=== PATIENT | female | born 1950 | race American Indian/Alaskan Native ===

== ENCOUNTER 2018-02-27 10:51 | Outpatient (CLI) | payer MEDICARE ==
[2018-02-27 11:24] LABS: Blood Urea Nitrogen 17 mg/dL (7-17)
--- NOTE | 2018-02-27 13:35 | Cat Scan Report ---
CT ABDOMEN WITH AND WITHOUT CONTRAST: HISTORY: abdominal pain. COMPARISON: none. TECHNIQUE: Helical CT in 1.25mm intervals before and after IV contrast and oral contrast. Sagittal and coronal reconstructions. FINDINGS: Lung bases: Normal. Liver: The liver is normal size and contour. Mild diffuse fatty infiltration of the liver parenchyma is noted. No focal liver mass or surface nodularity. Biliary system: Normal. Pancreas: Normal. Spleen: Normal. Kidneys/ureters/bladder: Normal. There is trace fluid in the left anterior pararenal space of uncertain etiology. This is probably an incidental finding Adrenal glands: Normal. Aorta: Normal. Intestines: There are a few diverticula identified in the ascending colon. No evidence for obstruction, acute inflammation or mass. Appendix: Normal. Ascites: None. Adenopathy: None. Musculoskeletal: Normal. IMPRESSION: No acute process is identified in the abdomen. Mild diverticulosis of the proximal colon. Mild fatty infiltration of the liver parenchyma.
== END 2018-02-27 10:52 | disposition home or self-care (01) ==
LOC: CT 10:51
PROVIDERS: ATTEND Internal Medicine
DX: K57.30 Diverticulosis of large intestine without perforation or abscess without bleeding (principal); K76.0 Fatty (change of) liver, not elsewhere classified
CPT/HCPCS: 36415; 74170; 82565; 84520; Q9967

== ENCOUNTER 2018-12-28 05:43 | Day surgery (SDC) | payer MEDICARE ==
[2018-12-28] MEDS ORDERED: ECOTRIN PO ONE (06:11)
[2018-12-28 06:49] LABS: Basophils % (Auto) 0.6 % (0.0-1.8); Eosinophils # (Auto) 0.2 K/mm3 (0.0-0.4); Eosinophils % (Auto) 3.8 % (0.0-4.3); Hematocrit 34.5 % (30.3-42.9); Hemoglobin 11.4 gm/dl (10.1-14.3); Lymphocytes # (Auto) 2.3 K/mm3 (1.2-5.4); Lymphocytes % (Auto) 36.5 % (13.4-35.0); Mean Corpuscular HGB Conc 33 % (30-34); Mean Corpuscular Volume 87 fl (79-97); Monocytes # (Auto) 0.6 K/mm3 (0.0-0.8); Monocytes % (Auto) 9.9 % (0.0-7.3); Platelet Count 262 K/mm3 (140-440); Red Blood Count 3.99 M/mm3 (3.65-5.03)
[2018-12-28 06:58] LABS: INR 0.98 (0.87-1.13)
[2018-12-28] MEDS ORDERED: NACL 0.9% 500 ML 500 ML IV SCH (07:00)
[2018-12-28 07:02] LABS: BUN/Creatinine Ratio 29; Blood Urea Nitrogen 20 mg/dL (7-17); Calcium 8.4 mg/dL (8.4-10.2); Hemolysis Index 3
[2018-12-28] MEDS ORDERED: HEPARIN/NS 5000 UNIT/500ML(CATH LAB) 1,000 ML IR ONE (09:00)
[2018-12-28] MEDS ORDERED: HEPARIN 10,000 UNITS/10 ML ONE (09:00)
[2018-12-28] MEDS ORDERED: CALAN ONE (09:01)
[2018-12-28] MEDS ORDERED: NITROGLYCERIN SYRINGE 3 ML ONE (09:01)
[2018-12-28] MEDS ORDERED: VERSED ONE (09:01)
[2018-12-28] MEDS: SUBLIMAZE ONE ×2 (09:46→09:58)
[2018-12-28] MEDS: XYLOCAINE 2% INFILTRATI ONE ×2 (09:48→09:57)
[2018-12-28] MEDS ORDERED: XYLOCAINE 2% INFILTRATI ONE (10:02)
[2018-12-28] MEDS ORDERED: NACL 0.9% 1000 ML 1,000 ML IV SCH (11:00)
--- NOTE | 2018-12-28 11:01 | Event Note ---
Date: 12/28/18 Patient underwent outpatient cardiac catheterization via the right femoral artery, no complications. Findings: Severe three-vessel coronary artery disease including a 75-80% stenosis of the mid LAD. Left ventricular systolic ejection fraction 40-45%. Recommendations: Coronary artery bypass surgery, patient will be transferred to tertiary center to undergo bypass.
--- NOTE | 2018-12-28 11:04 | Discharge Summary ---
Short Stay Discharge Plan Activity: advance as tolerated Weight Bearing Status: Partial Weight Bearing Diet: low fat, low cholesterol, low salt, diabetic Wound: keep clean and dry Special Instructions: no heavy lifting (3 days) Follow up with: MANISH MCKENNA MD [Primary Care Provider] - 7 Days AYAAN HOGAN MD [Staff Physician] - 7 Days
--- NOTE | 2018-12-28 11:41 | Cardiac Catherization Report ---
CARDIAC CATHETERIZATION REASON FOR PROCEDURE: The patient is a 68-year-old woman who presented as an outpatient with exertional dyspnea and fatigue, a Lexiscan thallium stress test was abnormal, prompting a recommendation for cardiac catheterization. On examination, there was a 2/6 systolic ejection murmur, but echocardiogram found significant sclerosis of the aortic valve, but no significant aortic stenosis. Left ventricular ejection fraction was 45% on echocardiogram. PROCEDURE: 1. Left heart catheterization. 2. Selective left and right coronary angiography. 3. Left ventricular angiography. 4. Sedation time start 09:46, end 10:18. DESCRIPTION OF PROCEDURE: The patient was prepped and draped in a sterile fashion after informed consent. Initial attempt at catheterization via the right radial approach was unsuccessful and abandoned due to severe tortuosity of the brachiocephalic trunk. We then turned our attention to the right femoral artery. The right groin was anesthetized following which we performed cannulation of the right femoral artery. Using the Seldinger technique, a 6-Irish sheath was inserted. Selective left and right coronary angiography was performed using #4 right and left Jose catheters. A pigtail catheter was used for left ventricle angiography. The catheters were then removed, sheath removed, and hemostasis achieved in the right femoral artery using an Angio-Seal device. Subsequently, a TR band was used for hemostasis of the right radial artery site. The procedure was well tolerated by the patient and there were no complications. FINDINGS: HEMODYNAMICS: Left ventricle end diastolic pressure was 35, following coronary angiography. Ascending aortic pressure was 168/74. There was no significant pressure gradient on pullback across the aortic valve. CORONARY ANGIOGRAPHY: There was moderate diffuse coronary calcification, chiefly involving the left coronary vessels. The left main coronary artery contained mild irregularities. The left anterior descending artery contained diffuse mild atherosclerosis of its proximal segment. The mid segment was notable for two sequential, 75-80% stenosis. The diagonal branches also contained [id number] diffuse atherosclerosis. The obtuse marginal branch of the circumflex artery contained a 90% stenosis of its mid segment. The right coronary artery was a large dominant vessel. There was an ostial, 85-90% stenosis of this vessel. This was followed by another long, irregular 80% stenosis of the mid segment. There was mild left ventricular systolic dysfunction, ejection fraction 40-45%. CONCLUSION: 1. Severe 3-vessel coronary artery disease including a 75-80% stenosis of the mid LAD. 2. Mild left ventricular systolic dysfunction, ejection fraction 40-45%. RECOMMENDATION: Coronary artery bypass surgery. JOB# [id number] YAYA/NTS
[2018-12-28] MEDS ORDERED: LASIX IV ONE (11:55)
[2018-12-28 14:27] VITALS: BP 156/69
== END 2018-12-28 14:30 | disposition other institution (70) ==
LOC: CATHLABREC 05:43
PROVIDERS: ATTEND Internal Medicine Cardiovascular Disease
DX: I25.10 Atherosclerotic heart disease of native coronary artery without angina pectoris (principal); E78.00 Pure hypercholesterolemia, unspecified; I10 Essential (primary) hypertension; Z79.82 Long term (current) use of aspirin; Z79.899 Other long term (current) drug therapy; Z98.890 Other specified postprocedural states; Z98.42 Cataract extraction status, left eye; Z98.41 Cataract extraction status, right eye
CPT/HCPCS: 36415; 80048; 85025; 85610; 93005; 93010; 93458; 96374; 99156; 99157; C1760; C1769; C1894; J1644; J1940; J2250; J3010; J7030; J7040; Q9967

== ENCOUNTER 2019-01-13 17:20 | Inpatient (IN) | payer MEDICARE ==
--- NOTE | 2019-01-13 17:30 | Emergency Department Report ---
ED General Adult HPI - General Chief complaint: Medical Clearance Stated complaint: HYPOGLYCEMIA Time Seen by Provider: 01/13/19 17:29 Source: patient, EMS (verbal report received from EMS. ems notes not available at time of chart dictation), RN notes reviewed, old records reviewed Mode of arrival: Stretcher Limitations: No Limitations - History of Present Illness Initial comments: This is a 68-year-old female. The patient has a history of obesity, recent cardiovascular bypass surgery for presumed coronary artery disease, diabetes and hypertension. Patient was recently discharged from [facility] after cardiac bypass surgery. Apparently, her metformin was increased to 1000 mg twice daily. The patient has been discharged for a few days. The patient is brought to the hospital by emergency medical services for complaint of painless hypoglycemia. Patient has apparently had 3 episodes today. As per verbal report from emergency medical services, the patient had 2-3 episodes of hypoglycemia prior to her arrival to the emergency room, and earlier on today, refused transport to the hospital, but did receive IV dextrose. The patient's hyperglycemia is resolved with intravenous dextrose. She endorses compliance with her medications. Her last time of ingestion of metformin was approximately 8:00 in the morning. She cannot recall the remainder of her medications. She denies physical pain. She's had chronic lower extremity swelling since her surgery, and some abdominal distention, but this is at baseline, and not symptomatic. The patient denies physical pain otherwise, and denies urinary symptoms. -: Sudden Consistency: intermittent Improves with: medication Worsens with: none - Related Data Home Medications Medication Instructions Recorded Confirmed Last Taken Aspirin [Aspirin TAB] 325 mg PO QDAY 12/28/18 12/28/18 12/27/18 Glimepiride [Amaryl] 4 mg PO DAILY 12/28/18 12/28/18 12/27/18 Losartan [Cozaar] 100 mg PO QDAY 12/28/18 12/28/18 12/28/18 06:40 Pravastatin [Pravachol] 20 mg PO QHS 12/28/18 12/28/18 12/27/18 Allergies Allergy/AdvReac Type Severity Reaction Status Date / Time No Known Allergies Allergy Verified 12/28/18 06:17 ED Review of Systems ROS: Stated complaint: HYPOGLYCEMIA Other details as noted in HPI Constitutional: other (when becoming hypoglycemic, the patient becomes sluggish). denies: fever Eyes: denies: eye discharge Respiratory: denies: wheezing Cardiovascular: edema Gastrointestinal: denies: nausea, vomiting Genitourinary: denies: dysuria Skin: denies: lesions Neurological: weakness (intermittent, only when hypoglycemic) ED Past Medical Hx - Past Medical History Hx Hypertension: Yes Hx Diabetes: Yes (Type II) Hx HIV: No - Social History Smoking Status: Never Smoker - Medications Home Medications: Home Medications Medication Instructions Recorded Confirmed Last Taken Type Aspirin [Aspirin TAB] 325 mg PO QDAY 12/28/18 12/28/18 12/27/18 History Glimepiride [Amaryl] 4 mg PO DAILY 12/28/18 12/28/18 12/27/18 History Losartan [Cozaar] 100 mg PO QDAY 12/28/18 12/28/18 12/28/18 06:40 History Pravastatin [Pravachol] 20 mg PO QHS 12/28/18 12/28/18 12/27/18 History ED Physical Exam - General Limitations: Physical Limitation General appearance: obese - Head Head exam: Present: atraumatic, normocephalic - Eye Eye exam: Present: normal appearance, EOMI. Absent: nystagmus - ENT ENT exam: Present: normal exam, normal orophraynx, mucous membranes moist, normal external ear exam - Neck Neck exam: Present: normal inspection, full ROM. Absent: tenderness, meningismus - Respiratory Respiratory exam: Present: normal lung sounds bilaterally, other (sternotomy scar noted, with no redness, pus or streaking). Absent: respiratory distress - Cardiovascular Cardiovascular Exam: Present: normal rhythm, tachycardia. Absent: bradycardia, irregular rhythm, diastolic murmur, rubs, gallop - GI/Abdominal GI/Abdominal exam: Present: soft, distended, other (abdominal wall ecchymosis noted,). Absent: tenderness, guarding, rebound, rigid, pulsatile mass - Extremities Exam Extremities exam: Present: normal inspection, full ROM, pedal edema, other (2+ pulses noted in the bilateral upper, lower extremities. Compartments soft. No long bony tenderness. The pelvis is stable.). Absent: calf tenderness - Back Exam Back exam: Present: normal inspection, full ROM. Absent: tenderness, CVA tenderness (R), paraspinal tenderness, vertebral tenderness - Neurological Exam Neurological exam: Present: alert, oriented X3, other (Extraocular movements intact. Tongue midline. No facial droop. Facial sensation intact to light touch in the V1, V2, V3 distribution bilaterally. 5 and 5 strength in 4 extremities.. Sensation is intact to light touch in 4 extremities.). Absent: motor sensory deficit - Psychiatric Psychiatric exam: Present: normal affect, normal mood - Skin Skin exam: Present: warm, ecchymosis ED Course Vital Signs 01/13/19 01/13/19 01/13/19 17:23 17:30 17:34 Temperature 98.3 F Pulse Rate 100 H Respiratory 16 Rate Blood Pressure 126/62 126/62 124/98 O2 Sat by Pulse 100 100 Oximetry 01/13/19 01/13/19 01/13/19 17:46 18:10 18:16 Temperature Pulse Rate 100 H Respiratory 14 Rate Blood Pressure 124/98 125/86 134/87 O2 Sat by Pulse 99 94 100 Oximetry 01/13/19 01/13/19 01/13/19 18:30 18:34 18:46 Temperature 98.3 F Pulse Rate 103 H 70 100 H Respiratory 25 H 16 22 Rate Blood Pressure 145/51 140/75 O2 Sat by Pulse 100 100 99 Oximetry 01/13/19 01/13/19 01/13/19 19:00 19:15 19:30 Temperature Pulse Rate 99 H 102 H 98 H Respiratory 21 19 17 Rate Blood Pressure 126/60 129/62 129/62 O2 Sat by Pulse 100 99 98 Oximetry 01/13/19 01/13/19 01/13/19 19:45 20:00 20:15 Temperature Pulse Rate 97 H 98 H 100 H Respiratory 12 15 17 Rate Blood Pressure 119/57 125/61 120/64 O2 Sat by Pulse 100 98 100 Oximetry 01/13/19 20:18 Temperature Pulse Rate Respiratory 16 Rate Blood Pressure O2 Sat by Pulse Oximetry - Reevaluation(s) Reevaluation #1: 01/13/19 18:43 Differential diagnosis, including not limited to: Hypoglycemia, likely secondary to medication Assessment and plan: 68-year-old female with probable hypoglycemia, recurrent, likely secondary to medication being increased. The patient is afebrile with reassuring vital signs at this time. Has lower extremity swelling which has been present for weeks, and is not acutely symptomatic, or different from baseline. Has abdominal distention, but not new or different when compared to prior, as per verbal report from patient. She is currently pleasant, calm and cooperative, in speaking to her family in full sentences. I have requested a complete list of the patient's medications in order to make additional recommendations. This was described to the patient, and temperature nursing staff, who have verbalized understanding, and are attempting to obtain a complete list of patient's medications. In the meantime, we will place the patient on every one hour Accu-Cheks, and provide intravenous dextrose as needed, and also supply food as well. Reevaluation #2: 01/13/19 19:42 Patient's medications include glimepiride, a sulfonylurea, which she last took this morning. Typically, we observe this patient for at least 24 hours. We will contact the [facility] for further recommendations, nursing team has been instructed to perform this task, however, I have counseled patient and family that we recommended admission for observation for recurrent hypoglycemia. The patient is amenable to this plan of care. Reevaluation #3: 01/13/19 19:51 d/w Dr Baldemar Marrufo, cash posting specialist at the [facility], recommends 50 mcg of octreotide sub q every 6 hours, for at least 3 doses, observation, dextrose infusion, and clarification of the patients meds (regular release v extended release). also recommends morning lactic acid to assess for metformin associated lactic acidosis 01/13/19 19:53 01/13/19 19:54 Reevaluation #4: 01/13/19 21:18 Patient continues to have low blood glucose levels. Patient has already been ordered for dextrose 50 as needed. A D10 drip was ordered. Octreotide has also been ordered. She is currently awake and alert, and does not appear to be in any acute distress. Hospital physician is paged to arrange admission. Reevaluation #5: 01/13/19 21:54 Dr. Bach has accepted to the medical service. ED Medical Decision Making - Lab Data Result diagrams: 01/13/19 17:40 01/13/19 17:40 Vital Signs 01/13/19 01/13/19 17:34 18:34 Temperature 98.3 F 98.3 F Pulse Rate 100 H 70 Respiratory 16 16 Rate Blood Pressure 124/98 O2 Sat by Pulse 100 100 Oximetry Lab Results 01/13/19 01/13/19 01/13/19 Range/Units 17:40 17:40 18:13 WBC 12.0 H (4.5-11.0) K/mm3 RBC 2.78 L (3.65-5.03) M/mm3 Hgb 8.0 L (10.1-14.3) gm/dl Hct 24.2 L (30.3-42.9) % MCV 87 (79-97) fl MCH 29 (28-32) pg MCHC 33 (30-34) % RDW 14.5 (13.2-15.2) % Plt Count 625 H (140-440) K/mm3 Sodium 138 (137-145) mmol/L Potassium 4.4 (3.6-5.0) mmol/L Chloride 99.2 (98-107) mmol/L Carbon Dioxide 24 (22-30) mmol/L Anion Gap 19 mmol/L BUN 25 H (7-17) mg/dL Creatinine 0.7 (0.7-1.2) mg/dL Estimated GFR > 60 ml/min BUN/Creatinine Ratio 36 % Glucose 47 L (65-100) mg/dL POC Glucose 55 L (70-105) Calcium 9.4 (8.4-10.2) mg/dL Magnesium 1.20 L (1.7-2.3) mg/dL Total Bilirubin 0.60 (0.1-1.2) mg/dL AST 25 (5-40) units/L ALT 26 (7-56) units/L Alkaline Phosphatase 151 H (35-129) units/L Total Protein 7.1 (6.3-8.2) g/dL Albumin 3.5 L (3.9-5) g/dL Albumin/Globulin Ratio 1.0 % Critical Care Time: Yes Critical care time in (mins) excluding proc time.: 35 Critical care attestation.: If time is entered above; I have spent that time in minutes in the direct care of this critically ill patient, excluding procedure time. Critical Care Time: Critical care time includes multiple bedside evaluations, interpretation of laboratory studies, review of patient's medications, time spent managing hypoglycemia which is recurrent, treating hypomagnesemia, which requires continuous cardiac monitoring, and magnesium sulfate infusion, and discussion with consulting services, including toxicology, and the hospital medicine service. This does not include procedure time. ED Disposition Clinical Impression: Hypoglycemia secondary to sulfonylurea, Hypomagnesemia Disposition: 09 OP ADMIT IP TO THIS HOSP Is pt being admited?: Yes Condition: Good Referrals: PRIMARY CARE,MD [Primary Care Provider] - 3-5 Days
[2019-01-13] MEDS ORDERED: D50W (25GM) Syringe IV ONE (17:34)
[2019-01-13 17:54] LABS: Hematocrit 24.2 % (30.3-42.9); Mean Corpuscular HGB Conc 33 % (30-34); Mean Corpuscular Volume 87 fl (79-97); Platelet Count 625 K/mm3 (140-440); Red Blood Count 2.78 M/mm3 (3.65-5.03); Red Cell Distribution Width 14.5 % (13.2-15.2)
[2019-01-13 18:13] LABS: Alanine Aminotransferase 26 units/L (7-56); Albumin 3.5 g/dL (3.9-5); BUN/Creatinine Ratio 36; Blood Urea Nitrogen 25 mg/dL (7-17); Calcium 9.4 mg/dL (8.4-10.2); Hemolysis Index 0
[2019-01-13] MEDS ORDERED: D50W (25GM) Syringe IV PRN (18:30)
[2019-01-13] MEDS: D50W (25GM) Vial IV ONE ×3 (18:43→21:50)
[2019-01-13] MEDS ORDERED: MAGNESIUM SULFATE 2GM/50ML 2 GM/50 ML BAG IV ONE (18:44)
[2019-01-13] MEDS ORDERED: NACL 0.9% 100 ML ONE ×2 (19:19→21:33)
[2019-01-13] MEDS ORDERED: LASIX IV ONE (19:51)
[2019-01-13] MEDS ORDERED: SandoSTATIN 500 MCG in NACL 0.9% 100 ML IV SCH (20:00)
[2019-01-13] MEDS ORDERED: D10W 1,000 ML IV SCH (20:00)
[2019-01-13] MEDS ORDERED: WATER FOR INJ Sterile (PF) 20 ML ONE (21:37)
--- NOTE | 2019-01-13 22:52 | History and Physical Report ---
History of Present Illness Date of examination: 01/13/19 History of present illness: 68-year-old woman history of hypertension, diabetes, coronary artery disease, status post CABG, was just discharged from the hospital on Tuesday C emergency room for evaluation. Daughter at bedside state that she's been shaken with dec reased responsiveness at home, her blood sugar was 13 the first time they called EMS. The patient responded to juice, however her sugar dropped again to 20, EMS came out to see the patient, patient did fine with juice. Blood sugar dropped again at 55, she was brought to the emergency room for further evaluation. Patient is already on amaryl. She is not taking metformin since discharge. He just started on D10 in the ER Review of systems Constitutional: no weight loss, chills, fever Ears, eyes, nose, mouth and throat: no nasal congestion, no nasal discharge, no sinus pressure, no vision change, no red eye. Neck: No neck pain or rigidity. Cardiovascular: no palpitations,chest pain Respiratory: no cough, +shortness of breath Gastrointestinal: no abdominal pain Genitourinary : no frequency , no hematuria Musculoskeletal: no joint swelling or muscle ache Integumentary: no rash, no pruritis Neurological: no parathesias, no focal weakness Endocrine: no cold or heat intolerance, no polyuria or polydipsia Hematologic/Lymphatic: no easy bruising, no easy bleeding, no gland swelling Allergic/Immunologic: no urticaria, no angioedema. PAST MEDICAL HISTORY: hypertension, diabetes, coronary artery disease, status post CABG, PAST SURGICAL HISTORY: CABG SOCIAL HISTORY: SOCIAL alcohol, NO tobacco, drugs FAMILY HISTORY: Hypertension Medications and Allergies Allergies Allergy/AdvReac Type Severity Reaction Status Date / Time No Known Allergies Allergy Verified 12/28/18 06:17 Home Medications Medication Instructions Recorded Confirmed Last Taken Type Glimepiride [Amaryl] 4 mg PO BID 12/28/18 01/13/19 01/13/19 History Pravastatin [Pravachol] 40 mg PO QHS 12/28/18 01/13/19 12/27/18 History Clopidogrel [Plavix] 75 mg PO QDAY 01/13/19 01/13/19 Unknown History Furosemide [Lasix TAB] 40 mg PO QDAY 01/13/19 01/13/19 Unknown History Losartan [Cozaar] 100 mg PO DAILY 01/13/19 01/13/19 Unknown History Metformin HCl [Glucophage] 1,000 mg PO 01/13/19 Unknown History Metoprolol 12.5 mg PO TID 01/13/19 01/13/19 Unknown History Oxycodone HCl [oxyCODONE] 10 mg PO Q6H PRN 01/13/19 01/13/19 Unknown History Potassium Chloride [K-Dur] 20 mg PO 01/13/19 Unknown History Active Meds: Active Medications Dextrose (D50w (25gm) Syringe) 50 ml IV PRN PRN PRN Reason: Hypoglycemia Last Admin: 01/13/19 19:00 Dose: 50 ml Documented by: Dextrose (D10w) 1,000 mls @ 75 mls/hr IV DIRECT JUSTO Last Admin: 01/13/19 21:30 Dose: 75 mls/hr Documented by: Exam - Physical Exam Narrative exam: Gen. appearance: Patient lying in bed, no apparent distress HEENT: Normocephalic, atraumatic, pupils equally round and reactive to light, extraocular movement intact, and no sclericterus,. No JVD or thyromegaly or no dule,neck supple, no carotid bruit ,mucous membranes moist, no exudate or erythema Heart: S1, S2, regular rate and rhythm Lungs: Clear bilaterally, breathing comfortable Abdomen: Positive bowel sounds, non-tender, nondistended, no organomegaly Extremity:no edema cyanosis, clubbing Skin: no rash, dry, warm Neuro: Oriented 3, cranial nerves II-12 intact, speech is fluent, motor and sensory intact - Constitutional Vitals: Temp Pulse Resp BP Pulse Ox 98.3 F 99 H 18 116/51 96 01/13/19 18:34 01/13/19 20:30 01/13/19 20:30 01/13/19 22:15 01/13/19 22:15 Results - Labs CBC & Chem 7: 01/13/19 17:40 01/13/19 22:40 Labs: Abnormal lab results 01/13/19 01/13/19 01/13/19 Range/Units 17:40 17:40 18:13 WBC 12.0 H (4.5-11.0) K/mm3 RBC 2.78 L (3.65-5.03) M/mm3 Hgb 8.0 L (10.1-14.3) gm/dl Hct 24.2 L (30.3-42.9) % Plt Count 625 H (140-440) K/mm3 BUN 25 H (7-17) mg/dL Glucose 47 L (65-100) mg/dL POC Glucose 55 L (70-105) Magnesium 1.20 L (1.7-2.3) mg/dL Alkaline Phosphatase 151 H (35-129) units/L Albumin 3.5 L (3.9-5) g/dL 01/13/19 01/13/19 01/13/19 Range/Units 19:17 21:12 21:16 WBC (4.5-11.0) K/mm3 RBC (3.65-5.03) M/mm3 Hgb (10.1-14.3) gm/dl Hct (30.3-42.9) % Plt Count (140-440) K/mm3 BUN (7-17) mg/dL Glucose (65-100) mg/dL POC Glucose 66 L < 40 L < 40 L (70-105) Magnesium (1.7-2.3) mg/dL Alkaline Phosphatase (35-129) units/L Albumin (3.9-5) g/dL Assessment and Plan Assessment Hypoglycemia secondary to diabetic medication Hypertension Diabetes Coronary artery disease Plan Admit to medicine Continue D10, monitor fingersticks Continue appropriate outpatient medication DVT prophylaxis
[2019-01-13] MEDS ORDERED: TYLENOL PO PRN (23:34)
[2019-01-13] MEDS ORDERED: ZOFRAN IV PRN (23:34)
[2019-01-13] MEDS ORDERED: SODIUM CHLORIDE FLUSH SYRINGE 10 ML IV PRN (23:34)
[2019-01-14] MEDS ORDERED: METOPROLOL 12.5 MG PO SCH (08:00)
[2019-01-14] MEDS ORDERED: MAGNESIUM SULFATE 2GM/50ML 2 GM/50 ML BAG IV ONE (09:03)
[2019-01-14] MEDS ORDERED: NON-FORMULARY (Losartan [Cozaar] 100 MG) PO SCH (10:00)
[2019-01-14] MEDS ORDERED: LOVENOX SUB-Q SCH (10:00)
[2019-01-14 10:39] LABS: Basophils # (Auto) 0.1 K/mm3 (0.0-0.1); Basophils % (Auto) 1.2 % (0.0-1.8); Eosinophils # (Auto) 0.1 K/mm3 (0.0-0.4); Eosinophils % (Auto) 1.3 % (0.0-4.3); Hematocrit 26.5 % (30.3-42.9); Hemoglobin 8.8 gm/dl (10.1-14.3); Lymphocytes # (Auto) 1.5 K/mm3 (1.2-5.4); Lymphocytes % (Auto) 16.5 % (13.4-35.0); Mean Corpuscular HGB Conc 33 % (30-34); Mean Corpuscular Volume 87 fl (79-97); Monocytes # (Auto) 0.7 K/mm3 (0.0-0.8); Monocytes % (Auto) 7.5 % (0.0-7.3); Platelet Count 672 K/mm3 (140-440); Red Blood Count 3.06 M/mm3 (3.65-5.03); Red Cell Distribution Width 14.9 % (13.2-15.2)
[2019-01-14] MEDS: LOVENOX SUB-Q SCH (10:48)
[2019-01-14] MEDS: COZAAR PO SCH (10:48)
[2019-01-14] MEDS: LOPRESSOR PO SCH ×3 (10:50→20:27)
[2019-01-14] MEDS: PLAVIX PO SCH (10:50)
[2019-01-14] MEDS: LASIX PO SCH (10:52)
[2019-01-14] MEDS: SODIUM CHLORIDE FLUSH SYRINGE 10 ML IV SCH ×2 (10:52→23:31)
[2019-01-14 11:05] LABS: BUN/Creatinine Ratio 26; Blood Urea Nitrogen 21 mg/dL (7-17); Calcium 9.1 mg/dL (8.4-10.2); Hemolysis Index 51
--- NOTE | 2019-01-14 11:14 | Progress Note ---
Assessment and Plan Assessment and plan: Patient is a 68 yo woman with a history of hypertension, DM type 2 and CAD s/p recent CABG this month at [facility] who presents to [facility] ED with hypoglycemia due to Amaryl and increase dosing of Metformin. Assessment Hypoglycemia secondary to diabetic medication: stopped meds Hypertension, continue to monitor Diabetes mellitus type 2 Coronary artery disease s/p recent CABG Hypomagnesemia Plan stop D10 and add ssi if bg doesnt drop after d10 stop then d//c home tomorrow replete magnesium via iv History Interval history: Patient was seen and examined. Follow-up on current diagnosis hypoglycemia. Overnight uneventful. Patient denies any chest pain, shortness breath, nausea/vomiting or severe headaches. Imaging, nursing note, chart, labs and old chart reviewed. Discussed with patient and daughter Carole at bedside. Hospitalist Physical - Physical exam Narrative exam: Gen: WDWN, NAD, Awake, Alert, Orientated x 3, bmi 39.3 HEENT: NCAT, EOMI, PERRL, OP Clear Neck: supple, no adenopathy, no thyromegaly, equivocal JVD CVS/Heart: RRR, normal S1S2, pulses present bilaterally Chest/Lungs: Symmetrical chest expansion, good air entry bilaterally GI/Abdomen: soft, NTND, good bowel sounds, no guarding or rebound /Bladder: no suprapubic tenderness, no CVA or paraspinal tenderness Extermity/Skin: +ble pitting leg edema, no obvious rash MSK: FROM x 4 Neuro: CN 2-12 grossly intact, no new focal deficits Psych: calm - Constitutional Vitals: Temp Pulse Resp BP Pulse Ox 98.3 F 102 H 18 117/60 96 01/14/19 08:00 01/14/19 10:50 01/13/19 20:30 01/14/19 10:50 01/14/19 00:15 Results - Labs CBC & Chem 7: 01/14/19 10:20 01/14/19 10:20 Labs: Laboratory Last Values WBC 9.2 K/mm3 (4.5-11.0) 01/14/19 10:20 RBC 3.06 M/mm3 (3.65-5.03) L 01/14/19 10:20 Hgb 8.8 gm/dl (10.1-14.3) L 01/14/19 10:20 Hct 26.5 % (30.3-42.9) L 01/14/19 10:20 MCV 87 fl (79-97) 01/14/19 10:20 MCH 29 pg (28-32) 01/14/19 10:20 MCHC 33 % (30-34) 01/14/19 10:20 RDW 14.9 % (13.2-15.2) 01/14/19 10:20 Plt Count 672 K/mm3 (140-440) H 01/14/19 10:20 Lymph % (Auto) 16.5 % (13.4-35.0) 01/14/19 10:20 [place] % (Auto) 7.5 % (0.0-7.3) H 01/14/19 10:20 Eos % (Auto) 1.3 % (0.0-4.3) 01/14/19 10:20 Baso % (Auto) 1.2 % (0.0-1.8) 01/14/19 10:20 Lymph # 1.5 K/mm3 (1.2-5.4) 01/14/19 10:20 [place] # 0.7 K/mm3 (0.0-0.8) 01/14/19 10:20 Eos # 0.1 K/mm3 (0.0-0.4) 01/14/19 10:20 Baso # 0.1 K/mm3 (0.0-0.1) 01/14/19 10:20 Seg Neutrophils % 73.5 % (40.0-70.0) H 01/14/19 10:20 Seg Neutrophils # 6.8 K/mm3 (1.8-7.7) 01/14/19 10:20 Sodium 139 mmol/L (137-145) 01/14/19 10:20 Potassium 5.2 mmol/L (3.6-5.0) H 01/14/19 10:20 Chloride 99.6 mmol/L (98-107) 01/14/19 10:20 Carbon Dioxide 24 mmol/L (22-30) 01/14/19 10:20 Anion Gap 21 mmol/L 01/14/19 10:20 BUN 21 mg/dL (7-17) H 01/14/19 10:20 Creatinine 0.8 mg/dL (0.7-1.2) 01/14/19 10:20 Estimated GFR > 60 ml/min 01/14/19 10:20 BUN/Creatinine Ratio 26 % 01/14/19 10:20 Glucose 189 mg/dL (65-100) H 01/14/19 10:20 POC Glucose 164 (70-105) H 01/14/19 03:32 Calcium 9.1 mg/dL (8.4-10.2) 01/14/19 10:20 Magnesium 1.20 mg/dL (1.7-2.3) L 01/13/19 17:40 Total Bilirubin 0.60 mg/dL (0.1-1.2) 01/13/19 17:40 AST 25 units/L (5-40) 01/13/19 17:40 ALT 26 units/L (7-56) 01/13/19 17:40 Alkaline Phosphatase 151 units/L (35-129) H 01/13/19 17:40 Total Protein 7.1 g/dL (6.3-8.2) 01/13/19 17:40 Albumin 3.5 g/dL (3.9-5) L 01/13/19 17:40 Albumin/Globulin Ratio 1.0 % 01/13/19 17:40 Active Medications - Current Medications Current Medications: Generic Name Dose Route Start Last Admin Trade Name Freq PRN Reason Stop Dose Admin Acetaminophen 650 mg 01/13/19 23:34 Tylenol PO Q4H PRN Pain MILD(1-3)/Fever >100.5/LAUREANO Clopidogrel Bisulfate 75 mg 01/14/19 10:00 01/14/19 10:50 Plavix PO 75 mg QDAY JUSTO Administration Dextrose 50 ml 01/13/19 18:30 01/13/19 19:00 D50w (25gm) Syringe IV 50 ml PRN PRN Administration Hypoglycemia Enoxaparin Sodium 40 mg 01/14/19 10:00 01/14/19 10:48 Lovenox SUB-Q 40 mg QDAY@1000 JUSTO Administration Furosemide 40 mg 01/14/19 10:00 01/14/19 10:52 Lasix PO 40 mg QDAY JUSTO Administration Dextrose 1,000 mls @ 75 mls/hr 01/13/19 20:00 01/13/19 21:30 D10w IV 75 mls/hr DIRECT JUSTO Administration Losartan Potassium 100 mg 01/14/19 10:00 01/14/19 10:48 Cozaar PO 100 mg DAILY JUSTO Administration Metoprolol Tartrate 12.5 mg 01/14/19 08:00 01/14/19 10:50 Lopressor PO 12.5 mg TID JUSTO Administration Ondansetron HCl 4 mg 01/13/19 23:34 Zofran IV Q4H PRN Nausea And Vomiting Pravastatin Sodium 40 mg 01/14/19 22:00 Pravachol PO QHS JUSTO Sodium Chloride 10 ml 01/14/19 10:00 01/14/19 10:52 Sodium Chloride Flush Syringe 10 Ml IV 10 ml BID JUSTO Administration Sodium Chloride 10 ml 01/13/19 23:34 Sodium Chloride Flush Syringe 10 Ml IV PRN PRN LINE FLUSH
[2019-01-14] MEDS ORDERED: D50W (25GM) Syringe IV PRN (11:15)
[2019-01-14] MEDS: HumaLOG SUB-Q SCH ×3 (12:05→21:16)
[2019-01-14] MEDS ORDERED: PRAVACHOL PO SCH (22:00)
[2019-01-15] MEDS: HumaLOG SUB-Q SCH ×4 (00:54→12:56)
[2019-01-15 06:32] LABS: Calcium 8.1 mg/dL (8.4-10.2)
[2019-01-15 06:40] LABS: Red Blood Count 2.54 M/mm3 (3.65-5.03)
[2019-01-15 06:41] LABS: Hemoglobin 7.4 gm/dl (10.1-14.3); Mean Platelet Volume 7.1 fl (6-12); Red Cell Distribution Width 14.9 % (13.2-15.2)
[2019-01-15] MEDS: LOPRESSOR PO SCH ×2 (09:39→16:00)
[2019-01-15] MEDS: COZAAR PO SCH (09:40)
[2019-01-15] MEDS: LOVENOX SUB-Q SCH (09:55)
[2019-01-15] MEDS: SODIUM CHLORIDE FLUSH SYRINGE 10 ML IV SCH (09:55)
[2019-01-15] MEDS: PLAVIX PO SCH (09:55)
[2019-01-15] MEDS: LASIX PO SCH (09:55)
--- NOTE | 2019-01-15 11:03 | Progress Note ---
Assessment and Plan Assessment and plan: Patient is a 68 yo woman with a history of hypertension, DM type 2 and CAD s/p recent CABG this month at [facility] who presents to [facility] ED with hypoglycemia due to Amaryl and increase dosing of Metformin. Hypoglycemia secondary to diabetic medication Hypertension, continue to monitor Diabetes mellitus type 2 Coronary artery disease s/p recent CABG Hypomagnesemia History Interval history: Patient was seen and examined. Follow-up on current diagnosis hypoglycemia. Overnight uneventful. Patient denies any chest pain, shortness breath, nausea/vomiting or severe headaches. Imaging, nursing note, chart, labs and old chart reviewed. Discussed with patient and daughter Carole at bedside. Hospitalist Physical - Physical exam Narrative exam: Gen: WDWN, NAD, Awake, Alert, Orientated x 3, bmi 39.3 HEENT: NCAT, EOMI, PERRL, OP Clear Neck: supple, no adenopathy, no thyromegaly, equivocal JVD CVS/Heart: RRR, normal S1S2, pulses present bilaterally Chest/Lungs: Symmetrical chest expansion, good air entry bilaterally GI/Abdomen: soft, NTND, good bowel sounds, no guarding or rebound /Bladder: no suprapubic tenderness, no CVA or paraspinal tenderness Extermity/Skin: +ble pitting leg edema, no obvious rash MSK: FROM x 4 Neuro: CN 2-12 grossly intact, no new focal deficits Psych: calm - Constitutional Vitals: Temp Pulse Resp BP Pulse Ox 98.5 F 98 H 20 105/57 92 01/15/19 08:58 01/15/19 09:39 01/15/19 08:58 01/15/19 09:39 01/15/19 09:01 Results - Labs CBC & Chem 7: 01/15/19 05:50 01/15/19 05:50 Labs: Laboratory Last Values WBC 7.8 K/mm3 (4.5-11.0) 01/15/19 05:50 RBC 2.54 M/mm3 (3.65-5.03) L 01/15/19 05:50 Hgb 7.4 gm/dl (10.1-14.3) L 01/15/19 05:50 Hct 22.0 % (30.3-42.9) L 01/15/19 05:50 MCV 87 fl (79-97) 01/15/19 05:50 MCH 29 pg (28-32) 01/15/19 05:50 MCHC 34 % (30-34) 01/15/19 05:50 RDW 14.9 % (13.2-15.2) 01/15/19 05:50 Plt Count 551 K/mm3 (140-440) H 01/15/19 05:50 Lymph % (Auto) 16.5 % (13.4-35.0) 01/14/19 10:20 [place] % (Auto) 7.5 % (0.0-7.3) H 01/14/19 10:20 Eos % (Auto) 1.3 % (0.0-4.3) 01/14/19 10:20 Baso % (Auto) 1.2 % (0.0-1.8) 01/14/19 10:20 Lymph # 1.5 K/mm3 (1.2-5.4) 01/14/19 10:20 [place] # 0.7 K/mm3 (0.0-0.8) 01/14/19 10:20 Eos # 0.1 K/mm3 (0.0-0.4) 01/14/19 10:20 Baso # 0.1 K/mm3 (0.0-0.1) 01/14/19 10:20 Seg Neutrophils % 73.5 % (40.0-70.0) H 01/14/19 10:20 Seg Neutrophils # 6.8 K/mm3 (1.8-7.7) 01/14/19 10:20 Sodium 138 mmol/L (137-145) 01/15/19 05:50 Potassium 4.3 mmol/L (3.6-5.0) 01/15/19 05:50 Chloride 100.8 mmol/L (98-107) 01/15/19 05:50 Carbon Dioxide 25 mmol/L (22-30) 01/15/19 05:50 Anion Gap 17 mmol/L 01/15/19 05:50 BUN 27 mg/dL (7-17) H 01/15/19 05:50 Creatinine 1.1 mg/dL (0.7-1.2) 01/15/19 05:50 Estimated GFR 60 ml/min 01/15/19 05:50 BUN/Creatinine Ratio 25 % 01/15/19 05:50 Glucose 138 mg/dL (65-100) H 01/15/19 05:50 POC Glucose 123 (70-105) H 01/15/19 07:32 Calcium 8.1 mg/dL (8.4-10.2) L 01/15/19 05:50 Magnesium 1.80 mg/dL (1.7-2.3) 01/15/19 05:50 Total Bilirubin 0.60 mg/dL (0.1-1.2) 01/13/19 17:40 AST 25 units/L (5-40) 01/13/19 17:40 ALT 26 units/L (7-56) 01/13/19 17:40 Alkaline Phosphatase 151 units/L (35-129) H 01/13/19 17:40 Total Protein 7.1 g/dL (6.3-8.2) 01/13/19 17:40 Albumin 3.5 g/dL (3.9-5) L 01/13/19 17:40 Albumin/Globulin Ratio 1.0 % 01/13/19 17:40 Active Medications - Current Medications Current Medications: Generic Name Dose Route Start Last Admin Trade Name Freq PRN Reason Stop Dose Admin Acetaminophen 650 mg 01/13/19 23:34 01/14/19 11:56 Tylenol PO 650 mg Q4H PRN Administration Pain MILD(1-3)/Fever >100.5/LAUREANO Clopidogrel Bisulfate 75 mg 01/14/19 10:00 01/15/19 09:55 Plavix PO 75 mg QDAY JUSTO Administration Dextrose 50 ml 01/14/19 11:15 D50w (25gm) Syringe IV PRN PRN Hypoglycemia Furosemide 40 mg 01/14/19 10:00 01/15/19 09:55 Lasix PO 40 mg QDAY JUSTO Administration Insulin Human Lispro 0 unit 01/14/19 12:00 01/15/19 08:32 Humalog SUB-Q Not Given Q4H [facility] Protocol Losartan Potassium 100 mg 01/14/19 10:00 01/15/19 09:40 Cozaar PO Not Given DAILY [facility] Metoprolol Tartrate 12.5 mg 01/14/19 08:00 01/15/19 09:39 Lopressor PO Not Given TID [facility] Ondansetron HCl 4 mg 01/13/19 23:34 Zofran IV Q4H PRN Nausea And Vomiting Pravastatin Sodium 40 mg 01/14/19 22:00 01/14/19 21:43 Pravachol PO 40 mg QHS JUSTO Administration Sodium Chloride 10 ml 01/14/19 10:00 01/15/19 09:55 Sodium Chloride Flush Syringe 10 Ml IV 10 ml BID JUSTO Administration Sodium Chloride 10 ml 01/13/19 23:34 Sodium Chloride Flush Syringe 10 Ml IV PRN PRN LINE FLUSH
--- NOTE | 2019-01-15 11:04 | Discharge Summary ---
Providers - Providers Date of Admission: 01/13/19 22:51 Date of discharge: 01/15/19 Attending physician: SANTIAGO SHEN Primary care physician: [employer] Hospitalization Condition: Good Hospital course: Patient is a 68 yo woman with a history of hypertension, DM type 2 and CAD s/p recent CABG this month at [facility] who presents to [facility] ED with hypoglycemia due to Amaryl and increase dosing of Metformin. Hypoglycemia secondary to diabetic medication: stopped meds Hypertension, continue to monitor Diabetes mellitus type 2 Coronary artery disease s/p recent CABG Hypomagnesemia Disposition: DC-01 TO HOME OR SELFCARE Time spent for discharge: 32 minutes Core Measure Documentation - Palliative Care Palliative Care/ Comfort Measures: Not Applicable - Core Measures Any of the following diagnoses?: none - VTE Discharge Requirements Deep Vein Thrombosis/Pulmonary Embolism Present on Admission: No Has pt received <5 days of overlap therapy or INR<2.0: No Anticoagulant overlap therapy prescribed at discharge: No Contraindication No Overlap Therapy order at DC: Not Indicated Exam - Physical Exam Narrative exam: Gen: WDWN, NAD, Awake, Alert, Orientated x 3, bmi 39.3 HEENT: NCAT, EOMI, PERRL, OP Clear Neck: supple, no adenopathy, no thyromegaly, equivocal JVD CVS/Heart: RRR, normal S1S2, pulses present bilaterally Chest/Lungs: Symmetrical chest expansion, good air entry bilaterally GI/Abdomen: soft, NTND, good bowel sounds, no guarding or rebound /Bladder: no suprapubic tenderness, no CVA or paraspinal tenderness Extermity/Skin: +ble pitting leg edema, no obvious rash MSK: FROM x 4 Neuro: CN 2-12 grossly intact, no new focal deficits Psych: calm - Constitutional Vitals: Temp Pulse Resp BP Pulse Ox 98.5 F 98 H 20 105/57 92 01/15/19 08:58 01/15/19 09:39 01/15/19 08:58 01/15/19 09:39 01/15/19 09:01 Plan Activity: other (no strenous activity unless cleared by PCP) Diet: low salt, diabetic Special Instructions: record daily BP diary, record blood sugar diary Follow up with: CHATO ANDREA MD [Primary Care Provider] - 3-5 Days AYAAN HOGAN MD [Staff Physician] - 7 Days Forms: Work/School Release Form Prescriptions: Metformin HCl [Glucophage] 500 mg PO BID #60 tablet
[2019-01-15 16:32] VITALS: BP 100/55
== END 2019-01-15 16:25 | disposition home health service (06) | DRG 639 ==
LOC: ED 17:20 → IMCU 22:51 → 2B-ACE 01-14 18:36
PROVIDERS: ADMIT Internal Medicine; ATTEND Internal Medicine
DX: E11.649 Type 2 diabetes mellitus with hypoglycemia without coma (principal); I25.10 Atherosclerotic heart disease of native coronary artery without angina pectoris; I10 Essential (primary) hypertension; T38.3X5A Adverse effect of insulin and oral hypoglycemic [antidiabetic] drugs, initial encounter; E83.42 Hypomagnesemia; E66.9 Obesity, unspecified; Z68.39 Body mass index [BMI] 39.0-39.9, adult; Z88.2 Allergy status to sulfonamides; Z79.84 Long term (current) use of oral hypoglycemic drugs; Z79.899 Other long term (current) drug therapy; Y92.098 Other place in other non-institutional residence as the place of occurrence of the external cause; Z95.1 Presence of aortocoronary bypass graft; Z82.49 Family history of ischemic heart disease and other diseases of the circulatory system
CPT/HCPCS: 36415; 80048; 80053; 82947; 82962; 83735; 85025; 85027; 93005; 93010; G0378; A9270-GY; J1650; J1815; J1940; J2354; J3475

== ENCOUNTER 2019-07-02 09:07 | Outpatient (CLI) | payer MEDICARE ==
[2019-07-02 11:12] LABS: Chol/HDL Ratio 3.8 %
== END 2019-07-02 09:08 | disposition home or self-care (01) ==
LOC: LAB 09:07
PROVIDERS: ATTEND Internal Medicine
DX: E11.9 Type 2 diabetes mellitus without complications (principal); E78.5 Hyperlipidemia, unspecified
CPT/HCPCS: 36415; 80061; 83036

== ENCOUNTER 2019-11-16 10:07 | Outpatient (CLI) | payer MEDICARE ==
[2019-11-16 12:38] LABS: Creatinine,Urine 83.1 mg/dL (0.1-20.0)
[2019-11-16 12:39] LABS: Microalbumin/Creatinine Ratio 14.4 ug/mg
[2019-11-16 12:42] LABS: Chol/HDL Ratio 3.01 %
== END 2019-11-16 10:08 | disposition home or self-care (01) ==
LOC: LAB 10:07
PROVIDERS: ATTEND Internal Medicine
DX: E11.9 Type 2 diabetes mellitus without complications (principal); E78.5 Hyperlipidemia, unspecified
CPT/HCPCS: 36415; 80061; 82043; 83036

== ENCOUNTER 2020-08-18 09:27 | Outpatient (CLI) | payer MEDICARE ==
--- NOTE | 2020-08-18 13:22 | Vascular Lab Report ---
DUPLEX DOPPLER LOWER EXTREMITY ARTERIAL, BILATERAL INDICATION / CLINICAL INFORMATION: PERIPHERAL VAS DISEASE. TECHNIQUE: Arterial duplex examination of both lower extremities performed using B-mode, color flow and spectral Doppler assessment. FINDINGS: RIGHT: Common Femoral Artery: PSV 108 cm/sec. Biphasic waveform. Proximal SFA: PSV 107 cm/sec. Biphasic waveform. Mid SFA: PSV 136 cm/sec. Biphasic waveform. Distal SFA: PSV 136 cm/sec. Biphasic waveform. Popliteal artery: PSV 75 cm/sec. Biphasic waveform. Posterior tibial artery: PSV 9 cm/sec. Monophasic waveform. Dorsalis Pedis Artery: PSV 68 cm/sec. Biphasic waveform. Fluid collection right medial mid thigh measures 3.6 x 2.0 x 2.4 cm. No color Doppler flow visualized within the lesion LEFT: Common Femoral Artery: PSV 85 cm/sec. Biphasic waveform. Proximal SFA: PSV 76 cm/sec. Biphasic waveform. Mid SFA: PSV 100 cm/sec. Biphasic waveform. Distal SFA: PSV 77 cm/sec. Biphasic waveform. Popliteal artery: PSV 64 cm/sec. Biphasic waveform. Posterior tibial artery: PSV 51 cm/sec. Monophasic waveform. Dorsalis Pedis Artery: PSV 47 cm/sec. Monophasic waveform. 3.5 cm left popliteal cyst Right AXEL: Not performed. Left AXEL: Not performed. IMPRESSION: 1. Bilateral distal crural peripheral vascular disease with abnormal monophasic waveforms 2. Small fluid collection along the right aspect of right mid thigh likely represents seroma. Follow- up ultrasound recommended to confirm resolution. 3. 3.5 cm left popliteal cyst Ankle-Brachial Index (AXEL): - Calcified arteries > 1.4 - Normal = 0.9-1.4 - Mild PAD = 0.7-0.89 - Moderate PAD = 0.51-0.69 - Severe PAD < 0.5 Doppler Waveform: - Triphasic is normal. - Biphasic is abnormal if clear transition from triphasic signal along vascular tree. - Monophasic is abnormal. Signer Name: David Claros MD Signed: 08/18/2020 1:17 PM Workstation Name: [id number]
== END 2020-08-18 09:28 | disposition home or self-care (01) ==
LOC: VAS 09:27
PROVIDERS: ATTEND Internal Medicine
DX: M71.22 Synovial cyst of popliteal space [Baker], left knee (principal); I73.9 Peripheral vascular disease, unspecified
CPT/HCPCS: 93925

== ENCOUNTER 2020-10-29 07:57 | Outpatient (CLI) | payer MEDICARE ==
--- NOTE | 2020-10-29 09:34 | Ultrasound Report ---
Procedure: Ultrasound-guided left breast biopsy, 10/29/2020 8:22 AM Clinical information/indication: Abnormal left mammogram. Left breast mass. The patient presents for ultrasound-guided biopsy of solid mass in the left breast the 1:00 position. Comparison: [facility], 09/08/2020 Procedure: The benefits, indications and risks were discussed with the patient including but not limi antonia to bleeding, infection, hematoma formation, and inadequate tissue sampling. The patient agreed to proceed with both verbal and written consent. A timeout procedure was performed using 2 patient iden tifiers. The breast was prepped and draped in the usual sterile fashion. Lidocaine 1% with and without epineph rine were used for local anesthesia. Under direct ultrasound guidance, multiple core samples were obt ained of the oval mass in the left breast at the 1:00 position. A biopsy marker was then placed. Bio psy device was removed and hemostasis achieved with manual pressure. A sterile dressing was applied t o the skin. The patient tolerated the procedure without difficulty. No complications were encountered. Postbiopsy instructions were discussed with the patient and given in writing. Specimens were sent to pathology . IMPRESSION: 1. Technically successful left breast biopsy. Biopsy results are pending and will be reported in an a ddendum. Signer Name: Kasey Abbott MD Signed: 10/29/2020 9:29 AM Workstation Name: [id number]
--- NOTE | 2020-10-29 09:36 | Mammography Report ---
DIGITAL DIAGNOSTIC MAMMOGRAM WITH CAD CONVENTIONAL, 10/29/2020 CLINICAL INFORMATION / INDICATION: Postbiopsy mammogram performed after ultrasound-guided biopsy to d ocument clip placement. TECHNIQUE: Digital left mammographic imaging was performed. This examination was interpreted with the benefit of Computer-aided Detection analysis. COMPARISON: Ultrasound-guided biopsy, 08/28/2021. Left mammogram and ultrasound from [facility], 09/08/2020 FINDINGS: Breast Density: There are scattered areas of fibroglandular density. Postbiopsy mammogram confirms satisfactory positioning of the biopsy clip at the 1:00 position within the targeted density of interest. IMPRESSION: Satisfactory postbiopsy appearance of the left breast. Follow up recommendation: No recall. Post biopsy imaging. A "normal" or negative report should not discourage follow up or biopsy of a clinically significant f inding. A written summary of these findings will be mailed to the patient. The patient will be entered into a mammography reporting system which will generate a reminder letter for the patient's next appointmen t at the appropriate interval. According to the [employer], yearly mammograms are recommended starting at age 40 and continuing as long as a woman is in good health. Breast MRI is recommended for women with an shannon roximately 20-25% or greater lifetime risk of breast cancer, including women with a strong family his tory of breast or ovarian cancer and women who have been treated for Hodgkin's disease. Signer Name: Kasey Abbott MD Signed: 10/29/2020 9:32 AM Workstation Name: [id number]
== END 2020-10-29 07:58 | disposition home or self-care (01) ==
LOC: SPVWC 07:57
PROVIDERS: ATTEND Surgery
DX: N63.23 Unspecified lump in the left breast, lower outer quadrant (principal); C50.512 Malignant neoplasm of lower-outer quadrant of left female breast; E78.00 Pure hypercholesterolemia, unspecified; I10 Essential (primary) hypertension; E11.9 Type 2 diabetes mellitus without complications; Z17.0 Estrogen receptor positive status [ER+]; Z79.899 Other long term (current) drug therapy; Z79.84 Long term (current) use of oral hypoglycemic drugs; Z98.890 Other specified postprocedural states; Z98.41 Cataract extraction status, right eye; Z98.42 Cataract extraction status, left eye; Z95.1 Presence of aortocoronary bypass graft; Z82.49 Family history of ischemic heart disease and other diseases of the circulatory system
CPT/HCPCS: 88305

== ENCOUNTER 2020-11-18 08:18 | Outpatient (CLI) | payer MEDICARE ==
--- NOTE | 2020-11-19 08:44 | Magnetic Resonance Report ---
Bilateral breast MRI with and without contrast. History: Recent diagnosis left breast cancer, family history of breast cancer Procedure: Axial T1 and T2-weighted fat-sat images were obtained precontrast. 18 cc MultiHance was i njected intravenously and serial axial T1-weighted images with fat saturation were obtained postcontr ast. 3-D MIP projections, Kinetic analysis and subtraction imaging was utilized to evaluate. A [employer] antonia 8 channel breast coil was utilized for image acquisition. Comparison: Left breast ultrasound-guided biopsy images 10/29/2020, postbiopsy left mammogram Findings: Background level of enhancement is mild. No suspicious axillary or clavicular nodes are identified. No abnormal bone marrow signal is seen. No significant chest wall enhancement is noted. Median sternotomy changes are noted. Right breast: Tiny well-defined reniform structure with enhancing central area in the upper outer pos terior right breast is thought to represent a tiny intramammary lymph node. No suspicious lesions are seen. Left breast: The known malignant nodule in the mid to posterior upper left breast just lateral to mid line is noted with biopsy changes seen. This nodule measures approximately 8 mm in diameter and is lo cated approximately 17.8 cm from the nipple, at 0.7 cm from the chest wall, and 3.2 cm from the super ior skin surface. Mild hyperemia is seen in the area likely related to the biopsy but I do not see ob vious neoplastic type enhancement in other areas of the left breast. Impression: Known malignant nodule is seen in the left breast without other worrisome areas of enhanc ement seen and without evidence of metastatic disease. BIRADS: 6: Known diagnosis breast cancer Signer Name: Aldair Oates MD Signed: 11/19/2020 8:40 AM Workstation Name: [id number]
== END 2020-11-18 08:19 | disposition home or self-care (01) ==
LOC: SPVIMAG 08:18
PROVIDERS: ATTEND Surgery
DX: C50.412 Malignant neoplasm of upper-outer quadrant of left female breast (principal); N63.10 Unspecified lump in the right breast, unspecified quadrant
CPT/HCPCS: A9577; C8908; 77049

== ENCOUNTER 2021-02-18 06:27 | Day surgery (SDC) | payer MEDICARE | END 2021-02-18 11:35 | disposition home or self-care (01) | LOC: OR 06:27 | DX: C50.412 Malignant neoplasm of upper-outer quadrant of left female breast (principal); I89.8 Other specified noninfective disorders of lymphatic vessels and lymph nodes; I10 Essential (primary) hypertension; E11.9 Type 2 diabetes mellitus without complications; I25.10 Atherosclerotic heart disease of native coronary artery without angina pectoris; E78.5 Hyperlipidemia, unspecified; E66.9 Obesity, unspecified; Z98.890 Other specified postprocedural states; Z68.34 Body mass index [BMI] 34.0-34.9, adult; Z79.899 Other long term (current) drug therapy; Z79.82 Long term (current) use of aspirin; Z87.01 Personal history of pneumonia (recurrent); Z82.49 Family history of ischemic heart disease and other diseases of the circulatory system | CPT/HCPCS: 19301; 38525; 38792; 76098; 78800; 82962; 88307; 88333; A9541; J0690; J1170; J2250; J2405; J2704; J7120; Q9968 ==

== ENCOUNTER 2021-03-09 10:45 | Outpatient (CLI) | payer MEDICARE ==
--- NOTE | 2021-03-09 12:29 | Mammography Report ---
DEXA BONE DENSITY SCAN INDICATION / CLINICAL INFORMATION: POST MENOPAUSAL STATE Z78.0. 70 years Female COMPARISON: None available. LUMBAR SPINE, L1-L4: - Bone mineral density (BMD) = 1.324 g/cm2. - T-score = 1.6 - Z-score = 3.9 Change (%) since most recent prior (if available): None available. LEFT HIP, NECK : - Bone mineral density (BMD) = 0.961 g/cm2. - T-score = 0.1 - Z-score = 1.5 Change (%) since most recent prior (if available): None available. IMPRESSION: 1. WHO Classification: Normal bone density. Fracture Risk: Not Increased. BMD Reporting Guidelines (ISCD, 2015) BMD Reporting in Postmenopausal Women and in Men Age 50 and Older * T-scores are preferred. * The WHO densitometric classification is applicable. BMD Reporting in Females Prior to Menopause and in Males Younger Than Age 50 * Z-scores, not T-scores, are preferred. This is particularly important in children. * A Z-score of -2.0 or lower is defined as below the expected range for age, and a Z-score above -2. 0 is within the expected range for age. * Osteoporosis cannot be diagnosed in men under age 50 on the basis of BMD alone. * The WHO diagnostic criteria may be applied to women in the menopausal transition. http://www.iscd.org/official-positions/2245-iewo-lflodkcs-positions-adult/ Signer Name: Donta Crockett MD Signed: 03/09/2021 12:25 PM Workstation Name: [id number]
== END 2021-03-09 10:46 | disposition home or self-care (01) ==
LOC: SPVWC 10:45
PROVIDERS: ATTEND Internal Medicine Hematology & Oncology
DX: Z13.820 Encounter for screening for osteoporosis (principal); Z78.0 Asymptomatic menopausal state
CPT/HCPCS: 77080